=== PATIENT | male | born 1975 | race Caucasian/White ===

== ENCOUNTER → 2017-05-20 | Outpatient (REF) ==
--- NOTE | 2017-05-20 16:00 | REP ---
Lumbar spine three views: Comparison is 12/16/2012. There is mild scoliosis convex right, unchanged. Vertebral body heights and alignment are normal. There is moderate degenerative disc disease at every lumbar level. This has progressed. There is no spondylolysis or spondylolisthesis. Impression: Multilevel degenerative disc disease that has progressed. Scoliosis. Signed by Pelon Iraheta MD 05/20/2017 03:51 P
== END ==
LOC: M SMT 14:50
PROVIDERS: ATTEND Internal Medicine
DX: Z02.9 Encounter for administrative examinations, unspecified (principal)

== ENCOUNTER → 2019-06-09 | Outpatient (REF) | payer OTHER ==
[2019-06-09 12:29] LABS: ALBUMIN 4.1 GM/DL (3.2-5.2); ALT/SGPT 22 U/L (12-78); BILIRUBIN,TOTAL 0.3 MG/DL (0.2-1.0); BLOOD UREA NITROGEN 12 MG/DL (7-18); CALCIUM LEVEL 9.2 MG/DL (8.5-10.1); CARBON DIOXIDE LEVEL 29 MEQ/L (21-32); CHLORIDE LEVEL 105 MEQ/L (98-107); CREATININE FOR GFR 0.91 MG/DL (0.70-1.30); GLOMERULAR FILTRATION RATE > 60.0 (>60); GLUCOSE, FASTING 107 MG/DL (70-100); RHEUMATOID FACTOR QUANT < 10.0 IU/ML (<15.0); SODIUM LEVEL 140 MEQ/L (136-145); TOTAL PROTEIN 7.5 GM/DL (6.4-8.2)
[2019-06-09 12:37] LABS: FOLATE 15.7 NG/ML (>5.4); VITAMIN B12 LEVEL 551 PG/ML (247-911)
[2019-06-09 14:44] LABS: HEMOGLOBIN A1c 5.6 %
[2019-06-10 10:58] LABS: ALBUMIN 4.49 GM/DL (3.29-5.55); ALBUMIN % 59.8 % (55.8-66.1); ALPHA-1-GLOBULIN % 4.8 % (2.9-4.9); ALPHA-1-GLOBULINS 0.36 GM/DL (0.17-0.41); ALPHA-2-GLOBULINS 0.74 GM/DL (0.42-0.99); ALPHA-2-GLOBULINS % 9.9 % (7.1-11.8); BETA-1-GLOBULINS 0.47 GM/DL (0.28-0.60); BETA-1-GLOBULINS % 6.2 % (4.7-7.2); BETA-2-GLOBULINS 0.39 GM/DL (0.19-0.55); BETA-2-GLOBULINS % 5.2 % (3.2-6.5); GAMMA GLOBULIN % 14.1 % (11.1-18.8); GAMMA GLOBULINS 1.06 GM/DL (0.65-1.58)
[2019-06-14 00:06] LABS: ANTINUCLEAR ANTIBODIES DIRECT Negative (Negative); CERULOPLASMIN 26.3 mg/dL (16.0-31.0); COPPER PLASMA 112 ug/dL (72-166); LEAD BLOOD ADULT 2 ug/dL (0-4); MERCURY LEVEL None Detected ug/L (0.0-14.9); VITAMIN B1 LEVEL WHOLE BLOOD 144.6 nmol/L (66.5-200.0); VITAMIN B6,PYRIDOXAL PHOSPHATE 8.5 ug/L (5.3-46.7); VITAMIN E(ALPHA TOCOPHEROL) 7.8 mg/L (7.0-25.1)
== END ==
LOC: M LABNEURO 09:51
PROVIDERS: ATTEND Psychiatry & Neurology Neurology
DX: G90.09 Other idiopathic peripheral autonomic neuropathy (principal); E11.9 Type 2 diabetes mellitus without complications

== ENCOUNTER → 2024-04-19 | Outpatient (REF) | LOC: M PLAIMG 11:31 | PROVIDERS: ATTEND Internal Medicine | DX: M47.812 Spondylosis without myelopathy or radiculopathy, cervical region (principal); M54.9 Dorsalgia, unspecified ==